=== PATIENT | male | born 1955 | race Caucasian/White ===

== ENCOUNTER 2019-07-20 12:45 | Outpatient (CLI) | payer BC, SELFPAY ==
--- NOTE | 2019-07-20 10:57 | DI.RAD_ITS ---
EXAM: XR SHOULDER LT COMPLETE 2+V INDICATION: left shoulder pain. COMPARISON: No exams were available for comparison TECHNIQUE: 2D digital imaging was performed. FINDINGS: The clavicle appears normal. There is no evidence of a fracture. Mild degenerative changes are noted involving the AC joint.
== END 2019-07-20 13:05 ==
PROVIDERS: Visit Provider Physician Assistant
DX: M25.512 Pain in left shoulder (principal); M19.012 Primary osteoarthritis, left shoulder
CPT/HCPCS: 73030

== ENCOUNTER 2019-07-28 14:15 | Outpatient (CLI) | payer BC, SELFPAY ==
--- NOTE | 2019-07-28 14:11 | DI.RAD_ITS ---
EXAM: XR KNEE LT 4V+ INDICATION: knee pain. COMPARISON: LEFT KNEE 3 VIEW COMPLETE from 11/03/2017 TECHNIQUE: 2D digital imaging was performed. FINDINGS: There is moderate narrowing of the medial femorotibial joint space. There is periarticular spurring involving all 3 joint spaces; bones appear intact. They are normally mineralized. There is a small joint effusion. IMPRESSION: Mild to moderate degenerative changes of the left knee.
--- NOTE | 2019-07-28 14:12 | DI.RAD_ITS ---
EXAM: XR KNEE RT 3V AP,LAT,MIKAEL INDICATION: R knee OA. COMPARISON: XR KNEE LT 4V+ from 07/28/2019 TECHNIQUE: 2D digital imaging was performed. FINDINGS: There is moderate narrowing in the medial femorotibial joint space. There is periarticular spurring involving all 3 joint compartments. There is chondrocalcinosis. The bones are intact. They are nor jewell mineralized. The soft tissues are unremarkable. IMPRESSION: Moderate degenerative changes of the right knee.
== END 2019-07-28 14:35 ==
PROVIDERS: Visit Provider Physician Assistant
DX: M25.562 Pain in left knee (principal); M25.462 Effusion, left knee; M25.561 Pain in right knee; M17.0 Bilateral primary osteoarthritis of knee
CPT/HCPCS: 73562; 73564

== ENCOUNTER 2019-09-07 11:06 | Outpatient (CLI) | payer BC, SELFPAY ==
--- NOTE | 2019-09-07 10:37 | DI.RAD_ITS ---
EXAM: XR STANDING ALIGNMENT INDICATION: pain both knees. COMPARISON: No exams were available for comparison TECHNIQUE: 2D digital imaging was performed. FINDINGS: In the right knee, there is moderate narrowing of the medial femoral tibial joint space. Chondrocalc inosis is present. There is periarticular spurring present. In the left knee, there is mild narrowing of the medial joint compartment. Chondrocalcinosis is pres ent. There is mild periarticular spurring. The right lower extremity measures 90.0 cm. The left lower extremity measures 90.5 cm. IMPRESSION: Osteoarthritis of the knees bilaterally.
== END 2019-09-07 11:26 ==
PROVIDERS: Visit Provider Student in an Organized Health Care Education/Training Program
DX: M25.561 Pain in right knee; M25.562 Pain in left knee; M17.0 Bilateral primary osteoarthritis of knee
CPT/HCPCS: 77073

== ENCOUNTER → 2021-01-11 10:38 | Outpatient (BNVA) | payer MEDICARE, BC, OTHER, SELFPAY | PROVIDERS: PCP Family Medicine; Referring Provider Family Medicine; Visit Provider Physical Therapy Assistant | DX: B07.8 Other viral warts (principal) | CPT/HCPCS: 17000; 17110; 99214 ==

== ENCOUNTER 2021-01-17 02:46 | Outpatient (CLI) | payer MEDICARE, BC, OTHER, SELFPAY ==
--- NOTE | 2021-01-17 14:42 | DI.CT_ITS ---
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 TECHNIQUE: Imaging Protocol: Axial computed tomography images with coronal and sagittal reformatted images were created and reviewed. CONTRAST MATERIAL: Intravenous: None COMPARISON: No exams were available for comparison FINDINGS: There are no masses in the cerebellopontine angles evident on this noninfused study. Right Temporal Bone: The cochlea, vestibule, vestibular and cochlear aqueduct are normal. The semicircular canals are unr emarkable. There is no evidence of dehiscence. The ipsilateral internal auditory canal is within norm al limits. The scutum and tegmen are within normal limits. There is no evidence of destruction of the middle ear ossicles nor obvious otosclerosis. No abnormal density evident within the middle ear cav ity. The external auditory canal and mastoid air cells are normal. The temporomandibular joint is unremar kable. Left Temporal Bone: The cochlea, vestibule, vestibular and cochlear aqueduct are normal. The semicircular canals are unr emarkable. There is no evidence of dehiscence. The ipsilateral internal auditory canal is within nor mal limits. The scutum and tegmen are within normal limits. There is no evidence of ossicle destructi on nor otosclerosis. No abnormal soft tissue density evident within the middle ear cavity. The external auditory canal and mastoid air cells are normal. The temporomandibular joint is unremar kable. IMPRESSION: No obvious abnormality is evident. If clinically indicated further study with MRI of the internal au ditory canals can be performed. RADIATION DOSE DELIVERED: 394.87mGy.cm Total DLP DATA REPOSITORY: All CT scans at this facility are submitted to the National Radiology Data Registry (NRDR) Dose Index Registry (DIR) with the [employer] ([employer]). RADIATION OPTIMIZATION: All CT scans at this facility use at least one of these dose optimization te chniques: automated exposure control; mA and/or kV adjustment per patient size (includes targeted exa ms where dose is matched to clinical indication); or iterative reconstruction.
== END 2021-01-17 03:06 ==
PROVIDERS: PCP Family Medicine; Visit Provider Physician Assistant
DX: H90.A32 Mixed conductive and sensorineural hearing loss, unilateral, left ear with restricted hearing on the contralateral side (principal)
CPT/HCPCS: 70480

== ENCOUNTER 2021-10-01 09:19 | Outpatient (CLI) | payer MEDICARE, OTHER, SELFPAY ==
--- NOTE | 2021-10-01 09:15 | RT.EKG_ITS ---
APPROVED REPORT Exam: Resting ECG Reason for Exam: Pre-op for surgery Patient Location: O HR:56 bpm ECG Measurements Heart Rate 56 AXIS AZ 183 P 27 QRSd 88 QRS 68 QT 419 T 45 QTc 403 Conclusion Sinus bradycardia...rate< 60 Consider left ventricular hypertrophy...(S V1+R V5/V6) >3.50mV
== END 2021-10-01 09:20 | disposition home or self-care (01) ==
LOC: DI.KIM 09:22
PROVIDERS: PCP Family Medicine; Visit Provider Family Medicine
DX: Z01.818 Encounter for other preprocedural examination (principal)
CPT/HCPCS: 93010

== ENCOUNTER 2023-01-22 09:07 | Outpatient (REF) | payer MEDICARE, SELFPAY ==
[2023-01-22 16:50] LABS: ALT 24 U/L (16-63); AST 18 U/L (15-37); Albumin 3.6 g/dL (3.4-5.0); Alkaline Phosphatase 60 U/L (46-116); Anion Gap 7.9 mmol/L (3-11); BUN 25 mg/dL (7-18); Bilirubin, Total 0.4 mg/dL (0.2-1.0); CO2 25.1 mmol/L (21.0-32.0); CREATININE 0.9 mg/dL (0.70-1.30); Calculated LDL 195 mg/dL (<100); Chloride 105 mmol/L (98-107); Cholesterol 289 mg/dL (<200); Estimated GFR 93.61 (mL/min/1.73m2); Glucose 106 mg/dL (74-106); HDL Cholesterol 80 mg/dL (40-60); Potassium 4.2 mmol/L (3.5-5.1); Sodium 138 mmol/L (136-145); Total Protein 7.1 g/dL (6.4-8.2); Triglyceride 74 mg/dL (<150)
== END 2023-01-22 09:08 | disposition home or self-care (01) ==
LOC: NCHCN 09:07
PROVIDERS: Visit Provider Nurse Practitioner Family
DX: E78.00 Pure hypercholesterolemia, unspecified (principal); Z12.5 Encounter for screening for malignant neoplasm of prostate
CPT/HCPCS: 80053; 80061; 84153

== ENCOUNTER 2024-12-28 08:48 | Outpatient (REF) | payer MEDICARE, SELFPAY ==
[2024-12-28 16:27] LABS: Hemoglobin A1C 5.9 % (<5.7)
[2024-12-28 16:39] LABS: ALT 31 U/L (16-63); AST 25 U/L (15-37); Albumin 3.5 g/dL (3.4-5.0); Alkaline Phosphatase 77 U/L (46-116); Anion Gap 5.6 mmol/L (3-11); BUN 25 mg/dL (7-18); Bilirubin, Total 0.34 mg/dL (0.2-1.0); CO2 27.4 mmol/L (21.0-32.0); CREATININE 0.9 mg/dL (0.70-1.30); Calculated LDL 195 mg/dL (<100); Chloride 109 mmol/L (98-107); Cholesterol 292 mg/dL (<200); Estimated GFR 92.45 (mL/min/1.73m2); Glucose 111 mg/dL (74-106); HDL Cholesterol 83 mg/dL (>or=40); Potassium 4.3 mmol/L (3.5-5.1); Sodium 142 mmol/L (136-145); TSH (W/Ref FT4) 3.03 uIU/mL (0.36-3.74); Total Protein 6.8 g/dL (6.4-8.2); Triglyceride 70 mg/dL (<150); Vitamin D 25 Total 42.6 ng/mL (30-100)
[2024-12-28 23:27] LABS: PSA, Screening 2.1 ng/mL (<=4.5)
== END 2024-12-28 08:49 | disposition home or self-care (01) ==
LOC: NCHCN 08:48
PROVIDERS: PCP Nurse Practitioner Family; Visit Provider Family Medicine
DX: E78.00 Pure hypercholesterolemia, unspecified (principal); Z13.1 Encounter for screening for diabetes mellitus; Z12.5 Encounter for screening for malignant neoplasm of prostate
CPT/HCPCS: 80053; 80061; 82306; 84153; 83036; 84443